=== PATIENT | male | born 1960 | race Caucasian/White ===

== ENCOUNTER → 2017-01-27 | Outpatient (CLI) | payer OTHER ==
[~2017-01-27] MED LIST: BAYER ASPIRIN325 M1 PO; ELIQUIS5 MG PO; HYDROCODON-ACE1 EAC7 PO; LANSOPRAZOLE30 M3 PO; NEXIUM; PLAVI PO
--- NOTE | ~2017-01-27 | CT6 ---
[facility] A Service of [facility] RADIOLOGY TEXT RESULTS PATIENT: NADIA BERRY [facility]ATION: [facility] : 56 UNIT #: [id number] AGE: [address]: Rosemarie Lopez MD SEX: M ORDER DR: [id number] [facility] [address] [place], [place] [address] [id number] O MR#: [id number] [facility] #: [id number] NAME: NADIA BERRY. : 1960 SEX: M STUDY DATE/TIME: 01/27/2017 14:00 UNIT: [facility] ROOM: STUDY DESCRIPTION: CT Abdomen WWo Cont Attending Physician: Rosemarie Lopez M.D. Referring Physician: Rosemarie Lopez M.D. Ordering Physician: Rosemarie Lopez M.D. Primary Care Physician: Deepali French M.D. MEDICAL IMAGING REPORT This report is preliminary unless electronic signature is present EXAM Abdomen CT with and without contrast with multiphase postcontrast evaluation. HISTORY Pancreatitis. History of stenting in the past. Abdominal pain over the past year in the mid abdomen. Pancreatic pseudocyst noted in the head of the pancreas on the patient's previous CT. TECHNIQUE Axial images were obtained through the abdomen and into the mid pelvis. 100 mL of Isovue was used. Multiphase imaging was performed after contrast with thin sections through the bed of the pancreas. This CT exam was performed with one or more of the following radiation dose reduction techniques: automatic exposure control, adjustment of mA and/or kV according to patient size, and iterative reconstruction. FINDINGS Precontrast imaging shows no evidence of ascites. There is a stent seen in the pancreatic duct, as well as a stent in the common bile duct and both appear satisfactory. The pseudocyst in the head of the pancreas seen on the previous examination has resolved. There is some patchy low density seen in the head of the pancreas and loss of fat planes consistent with residual pancreatic fibrosis or granulation tissue. The pancreatic duct does not appear to be dilated. The liver, spleen, kidneys, and adrenals have a normal appearance. There is no evidence of retroperitoneal adenopathy and no distended bowel loops are noted. The appendix is normal. IMPRESSION Marked improvement since the previous examination of 11/26/2016. The pseudocyst has resolved with some residual granulation or fibrous tissue [facility] A Service of [facility] / [facility] RADIOLOGY TEXT RESULTS PATIENT: NADIA BERRY LOCATION: [facility] : 56 UNIT #: [id number] AGE: [address]: Rosemarie Lopez MD SEX: M ORDER DR: noted at the site. Peripancreatic inflammatory stranding has improved. No new collections are seen. Stents appear in satisfactory position. Dictated by... Tyler Rodriguez M.D. THIS IS AN ELECTRONICALLY VERIFIED REPORT Tyler Rodriguez M.D. at 01/28/2017 4:47 PM AVTAR/lyssa TD: 01/28/2017 15:54 JOB #: [id number] MEDICAL IMAGING REPORT Page 1 of 1 COPY
[2017-01-27 13:33] LABS: HEMOGLOBIN 15.3 gm/dL (13.0-16.0); MEAN CELL VOLUME 91.1 FL (83-96); MEAN CORPUSCULAR HEMOGLOBIN 30.9 PG (28-34); MEAN CORPUSCULAR HGB CONC 33.9 g/dL (30-36); MEAN PLATELET VOLUME 8.7 FL (6.5-11.5); RED BLOOD COUNT 4.94 X10e (3.90-5.60); RED CELL DISTRIBUTION WIDTH 15.5 % (11.0-15.5); WHITE BLOOD COUNT 8.5 X10e3 (4.0-10.5)
[2017-01-27 13:56] LABS: ALBUMIN SERUM 4.2 g/dL (3.5-5.0); BILIRUBIN,TOTAL 0.8 mg/dL (0.2-2.0); BUN/CREATININE RATIO 15.71; CALCIUM SERUM 9.4 mg/dL (8.4-10.2); CREATININE SERUM 0.7 mg/dL (0.6-1.4); GLOM FILT RATE Estimated 104.1 mL/min (>60); POTASSIUM 4.2 mmol/L (3.5-5.1); PROTEIN TOTAL SERUM 7.4 g/dL (6.0-8.3)
[2017-01-27 15:35] LABS: POC - CREATININE 1.01 mg/dL (0.64-1.27); POC - GFR >60.0 mL/min (>60)
== END | disposition home or self-care (01) ==
LOC: CCAT 12:57
PROVIDERS: Internal Medicine Gastroenterology
DX: K85.90 Acute pancreatitis without necrosis or infection, unspecified (principal)
CPT/HCPCS: 36415; 74170; 80053; 82150; 82565; 83690; 85027; 86140; Q9967